=== PATIENT | female | born 1965 | race Caucasian/White ===

== ENCOUNTER 2021-12-07 14:42 | Emergency (ER) | payer OTHER ==
--- OUTSIDE RECORDS SUMMARY | 2021-12-07 14:46 | XMS REPORT | Continuity of Care Document ---
:1965 Author Organization [facility] t Address [address] Dunn [address] [place] [id number] Care Team Providers Name Role Phone BORIS TATE Primary Care Physician Unavailable DUSTY RUEDA Attending Clinician Unavailable HEIDI VU Attending Clinician Unavailable Hyacinth Beckman MD Attending Clinician MARIANN [place] Attending Clinician Unavailable MARIANN [place] Attending Clinician Unavailable Dusty Rueda MD Attending Clinician Doctor Unassigned, [place] Attending Clinician Unavailable Amirah Michael MD Attending Clinician Vtc-Lab Attending Clinician Unavailable AMIRAH MICHAEL Attending Clinician Unavailable Pob, Adc Lab Main Attending Clinician Unavailable 2, Adc Lab Attending Clinician Unavailable Bere Jeffries MA Attending Clinician Unavailable Virginia Eddy Attending Clinician Rosy Tijerina RN Attending Clinician Unavailable VIRGINIA CONCEPCION Attending Clinician Unavailable Angle Whiting RN Attending Clinician Unavailable Only, Ang Db Test Attending Clinician Unavailable Samantha Palma Attending Clinician SAMANTHA VELÁSQUEZ Attending Clinician Unavailable MICHAEL MCGRATH Attending Clinician Unavailable DUSTY RUEDA Admitting Clinician Unavailable Dusty Rueda MD Admitting Clinician Payers Payer Name Policy Type Policy Number Effective Date Expiration Date S ginny [facility] [id number] 2015 HMO 00:00:00 Problems Condition Condition Condition Status Onset Resolution Last Treating Co mments Source Name Details Category Date Date Treatment Clinician Date Pelvic Pelvic Disease Active Univers pressure pressure 09-08 [place] [facility] Urinary Urinary Disease Active Univers frequency frequency 09-08 ity of 00:00: [place] [facility] Constipati Constipati Disease Active U nivers on, on, 09-08 ity of unspecif[place] Medical constipati constipati Br anch on type on type S/P S/P Disease Active Univers hysterecto hysterecto 3-11 it y of my my 00:00: 00 Medical Branch Menopause Menopause Disease Active Uni vers 5-11 ity of 00:00: [place] [facility] Allergies, Adverse Reactions, Alerts Allergy Allergy Status Severity Reaction(s) Onset Inactive Treating Comm ents Source Name Type Date Date Clinician NO KNOWN Drug Active Univers ALLERGIE Class ity of S [facility] Social History Social Habit Start Date Stop Date Quantity Comments Source History of Cigarette Smoker Universi ty of tobacco use [facility] Exposure to 2021-09-04 2021-09-14 Not sure University of SARS-CoV-2 00:00:00 16:02:00 [facility] (event) [place] Tobacco use and 2021-09-08 2021-09-08 Smokeless tobacco Un iversity of exposure 00:00:00 00:00:00 non-user [facility] Alcohol intake 2021-09-08 2021-09-08 Current drinker Unive rsity of 00:00:00 00:00:00 of alcohol [facility] (finding) [place] Tobacco Comment 2021-09-08 2021-09-08 quit over 7 years Un iversity of 00:00:00 00:00:00 ago [facility] Sex Ass[birth year] At [birth year] Universit y of 00:00:00 00:00:00 [facility] Smoking Status Start Date Stop Date Source Ex-smoker 2021-09-08 00:00:00 2021-09-08 00:00:00 [facility] Medications Ordered Filled Start Stop Current Ordering Indication Dosage Frequency Signature Comments Components Source Medication Medication Date Date Medication? Clinician (SIG) Name Name fexofenadin Yes Take by Uni vers e HCl 3-11 mouth. ity of (MUCINEX 13:12: [place] ALLERGY Medical ORAL) Branch fexofenadin Yes Take by Uni vers e HCl 3-11 mouth. ity of (MUCINEX 13:12: [place] ALLERGY Medical ORAL) Branch meloxicam Yes Univers 15 mg 3-10 ity of tablet 00:00: Medical Branch meloxicam Yes Univers 15 mg 3-10 ity of tablet 00:00: Medical Branch Yes Take by Univer s vit 1-19 mouth. ity of calc,iron,f 15:48: [place] olic 10 Medical ( Branch VITAMIN ORAL) Yes Take by Univer s vit 1-19 mouth. ity of calc,iron,f 15:48: [place] olic 10 Medical ( Branch VITAMIN ORAL) albuterol 2020-02 Yes Univers 90 0-11 ity of mcg/actuati 00:00: [place] on inhaler Medical Branch albuterol 2020-02 Yes Univers 90 0-11 ity of mcg/actuati 00:00: [place] on inhaler Medical Branch fluticasone Yes Univer s propionate 5-10 ity of 50 00:00: [place] mcg/actuati Medical on nasal Branch spray fluticasone Yes Univer s propionate 5-10 ity of 50 00:00: [place] mcg/actuati Medical on nasal Branch spray zolpidem 10 Yes 10mg Take 10 mg Univers mg tablet 5-06 by mouth ity of 00:00: at bedtime [place] [address] as needed. Medical Branch zolpidem 10 Yes 10mg Take 10 mg Univers mg tablet 5-06 by mouth ity of 00:00: at bedtime [place] [address] as needed. Medical Branch PARoxetine Yes Univers 20 mg 5-03 ity of tablet 00:00: [place] [facility] PARoxetine Yes Univers 20 mg 5-03 ity of tablet 00:00: [place] 00 Medical Branch amLODIPine Yes TAKE 1 Unive rs 5 mg tablet 4-03 TABLET BY ity of 00:00: MOUTH [place] 00 DAILY IN Medical EVENING Branch amLODIPine Yes TAKE 1 Unive rs 5 mg tablet 4-03 TABLET BY ity of 00:00: MOUTH [place] 00 DAILY IN [facility] EVENING Branch lisinopriL- Yes 1{tbl} Take 1 Un fitz hydrochloro 4-02 tablet by ity of thiazide 00:00: mouth [place] 10-12.5 mg 00 every Medical per tablet morning. Branc h lisinopriL- Yes 1{tbl} Take 1 Un fitz hydrochloro 4-02 tablet by ity of thiazide 00:00: mouth [place] 10-12.5 mg 00 every Medical per tablet morning. [facility] h Immunizations Ordered Filled Immunization Date Status Comments Sourc e Immunization Name Name SARS-COV-2 COVID-19 2019-10-24 Completed Unive rsity of NHAN/J&J VACCINE 00:00:00 [facility] SARS-COV-2 COVID-19 2019-10-24 Completed Unive rsity of HNAN/J&J VACCINE 00:00:00 [facility] Vital Signs Vital Name Observation Time Observation Value Comments Source Systolic blood 2021-09-14 21:08:00 127 mm[Hg] Univer sity of pressure [facility] Diastolic blood 2021-09-14 21:08:00 76 mm[Hg] Unive rsity of pressure [facility] Heart rate 2021-09-14 21:08:00 69 /min [facility] Body temperature 2021-09-14 21:08:00 36.94 Samra [facility] Respiratory rate 2021-09-14 21:08:00 18 /min [facility] Body height 2021-09-14 21:08:00 177.8 cm [facility] Body weight 2021-09-14 21:08:00 97.523 kg [facility] BMI 2021-09-14 21:08:00 30.85 kg/m2 [facility] Procedures Procedure Date / Time Performed Performing Clinician Sourc e POCT URINALYSIS W/O 2021-09-14 21:22:00 Hyacinth Beckman ty of [facility] Encounters Start End Encounter Admission Attending Care Care Encounter Source Date/Time Date/Time Type Type Clinicians Facility Department ID 2021-02-28 Outpatient R DUSTY RUEDA [facility] K 12 PRINCIPAL [id number] [facility] 2021-02-03 Outpatient R DUSTY RUEDA [facility] K 12 PRINCIPAL [id number] Univers [facility]:20[facility] 2021-01-30 Outpatient R DUSTY RUEDA [facility] K 12 PRINCIPAL [id number] Univers 15:56:25 [facility] 2021-10-12 2021-10-12 Telemedici [facility] 1.2.840.114 [id number] Univers 16:00:00 16:30:00 ne Visit Hyacinth BERNABE 350.1.13.10 ity [facility] 4.2.7.2.[place] PROF[place] [id number] W[place] dical NAL [address] [place] [address] 2021-10-12 2021-10-12 [facility] [id number] Univers 16:00:00 16:00:00 HYACINTH [facility] 2021-10-12 2021-10-12 Outpatient [facility] [id number] Univers 16:00:00 16:00:00 [facility] 2021-09-14 2021-09-14 Office [facility] 1.2.840.114 [id number] Univers 16:00:00 17:05:37 Visit Hyacinth BERNABE 350.1.13.10 i ty [facility] 4.2.7.2.[place] [id number] W[place] dical NAL [address] [place] [address] 2021-09-14 2021-09-14 Outpatient R RK [facility] [id number] Univers 16:00:00 17:05:37 HYACINTH [facility] 2021-09-14 2021-09-14 Outpatient [facility] [id number] Univers 16:00:00 16:00:00 HYACINTH [facility] 2021-09-08 2021-09-08 Outpatient R MARIANN [place] [facility] B [id number] Univers 13:30:00 14:20:01 TRIMARIANN CAPUTO ity of [facility] 2021-09-08 2021-09-08 Office Mohsen [facility] BILL 1.2.840.114 [id number] Univers 13:30:00 14:20:01 Visit Mariann BECKMAN 350.1.13.10 it y of WOMEN'S 4.2.7.2.686 [facility] [id number] [facility] 134 Branch 2021-09-08 2021-09-08 Telephone Dusty Rueda [facility] 1.2.840.11 [id number] Univers 00:00:00 00:00:00 RK 350.1.13.10 it y of PEDIATRIC 4.2.7.2.686 [facility] [id number] [facility] 134 Branch 2021-09-08 2021-09-08 Orders Doctor MONCADA 1.2.840.114 [id number] Univers 00:00:00 00:00:00 Only Unassigned, ZAIDA 350.1.13.10 ity of [place] [facility] 4.2.7.2.686 Luciano as [id number] [facility] 009 Branch 2021-06-30 2021-06-30 Orders Doctor CORAL 1.2.840.114 [id number] Univers 00:00:00 00:00:00 Only Unassigned, ZAIDA 350.1.13.10 ity of [place] [facility] 4.2.7.2.686 Luciano as [id number] [facility] 009 Branch 2021-06-18 2021-06-18 Telephone Alec [facility] 1.2.840.114 [id number] Univers 00:00:00 00:00:00 Amirah MULTISPEC 350.1.13.10 ity of IALTY 4.2.7.2.686 [facility] [id number] [facility] AND SORENTO 220 Branch [facility] 2021-06-17 2021-06-17 Platform Material Handling Supervisor Vtc-Lab [facility] 1.2.840.114 [id number] Univers 15:15:00 15:30:00 Visit Amirah Michael MULTISPEC 350.1.13.10 ity of IALTY 4.2.7.2.686 [facility] s WELLMAN [id number] [facility] 357 [place] [facility] 2021-06-17 2021-06-17 Outpatient R ALEC [facility] [id number] Univers 15:15:00 15:15:00 AMIRAH ity of [facility] 2021-06-17 2021-06-17 Outpatient R ALEC [facility] [id number] Univers 14:15:00 15:10:23 AMIRAH ity [facility] 2021-06-17 2021-06-17 Office Alec [facility] 1.2.840.114 [id number] Univers 14:15:00 15:10:23 [facility].1.13.10 ity of IALTY 4.2.7.2.686 [facility] [id number] [facility] 220 [place] [facility] 2021-04-24 2021-04-24 Outpatient R DUSTY RUEDA [facility] [id number] Univers 13:00:00 13:30:03 ity of [facility] 2021-04-24 2021-04-24 Office Dusty Rueda [facility] 1.2.840.114 [id number] Univers 13:00:00 13:30:03 Visit SRINIVASA 350.1.13.10 i ty of [place] 4.2.7.2.[address] [facility] PROFESSIO [id number] W[place] dical [address] 2021-04-14 2021-04-14 Outpatient R DUSTY RUEDA [facility] [id number] Univers 15:00:00 15:00:00 ity of [facility] 2021-03-27 2021-03-27 Telephone Dusty Rueda [facility] 1.2.840.11 [id number] Univers 00:00:00 00:00:00 RK 350.1.13.10 it y of [facility] 4.2.7.2.[address] [facility] [phone] [address] 2021-03-17 2021-03-17 Outpatient R DUSTY RUEDA [facility] [id number] Univers 10:30:00 11:20:27 ity of [facility] 2021-03-17 2021-03-17 Office Dusty Rueda [facility] 1.2.840.114 [id number] Univers 10:30:00 11:20:27 Visit SRINIVASA 350.1.13.10 i ty of [place] 4.2.7.2.686 [place] PROF[place] [id number] W[place] dical [address] 2021-03-09 2021-03-09 Telephone Dusty Rueda [place] 1.2.840.11 [id number] Univers 00:00:00 00:00:00 RK 350.1.13.10 it y of W[place]'S 4.2.7.2.[place] [facility] [id number] [facility] 134 Branch 2021-03-03 2021-03-04 Outpatient R DUSTY RUEDA OKM[facility] DIDI [id number] Univers 07:56:00 15:15:00 ity of [facility] 2021-03-03 2021-03-04 Hospital Dusty Rueda [facility] 1.2.840.114 [id number] Univers 07:56:00 15:15:00 Encounter HEALTH 350.1.13.10 ity of [place] 4.2.7.2.686 [place] KHAN [phone] [facility] [address] [place] ([facility]) 2021-03-03 2021-03-04 Outpatient R DUSTY RUEDA DIDI [id number] Univers 07:56:00 15:15:00 ity of [facility] 2021-03-03 2021-03-03 Surgery Dusty Rueda [facility] 1.2.840.114 [id number] Univers 10:25:00 13:15:00 HEALTH 350.1.13.10 it y of [place] 4.2.7.2.[place] KHAN [id number] [facility] 020 [place] ([facility]) 2021-02-28 2021-02-28 Platform Material Handling Supervisor Sourav, [place] Lab Main [facility] 1.2.8 40.114 [id number] Univers 08:00:00 08:15:00 Visit Dusty Rueda 350.1.13.10 ity of [place] 4.2.7.2.686 [facility] [phone] W[place] dical [facility] 353 Branch [facility] 2021-02-28 2021-02-28 Outpatient R DUSTY RUEDA [facility] [id number] Univers 08:00:00 08:00:00 ity of [facility] 2021-02-20 2021-02-20 Outpatient R DUSTY RUEDA [facility] [id number] Univers 13:00:00 13:00:00 ity of [facility] 2021-02-20 2021-02-20 Outpatient R DUSTY RUEDA [facility] [id number] Univers 13:00:00 13:00:00 ity [facility] 2021-02-18 2021-02-18 Outpatient R ALEC [facility] [id number] Univers 14:45:00 15:42:16 AMIRAH ity [facility] 2021-02-18 2021-02-18 Office [facility] 1.2.840.114 [id number] Univers 14:45:00 15:42:16 [facility] 350.1.13.10 ity of IALTY 4.2.7.2.686 [facility] [id number] [facility] AND S[place]ENT[place] 220 [address] [facility] 2021-02-16 2021-02-16 Telephone Dusty Rueda [facility] 1.2.840.11 [id number] Univers 00:00:00 00:00:00 RK 350.1.13.10 it y of WOMEN'S 4.2.7.2.686 [facility] [id number] [facility] 134 Branch 2021-02-09 2021-02-09 Outpatient R [facility] [id number] Univers 16:30:00 16:30:00 ity of [facility] 2021-02-09 2021-02-09 Outpatient R [facility] [id number] Univers 16:30:00 16:30:00 ity of [facility] 2021-02-09 2021-02-09 Outpatient R [facility] [id number] Univers 16:30:00 16:30:00 ity of [facility] 2021-02-09 2021-02-09 Case Dusty Rueda [facility] 1.2.840.114 [id number] Univers 00:00:00 00:00:00 Management RK 350.1.13.10 ity of [place].7.2.686 [place] [facility] [phone] [address] 2021-02-05 2021-02-05 Platform Material Handling Supervisor 2, Adc Lab [facility] 1.2.840.114 [id number] Univers 10:00:00 10:15:00 Visit Dutsy Rueda 350.1.13.10 ity of [facility] 4.2.7.2.686 [place] [id number] W[place] dical NAL [address] [facility] 2021-02-05 2021-02-05 Outpatient R DUSTY RUEDA [facility] [id number] Univers 10:00:00 10:00:00 ity of [facility] 2021-02-05 2021-02-05 Outpatient R DUSTY RUEDA [facility] [id number] Univers 10:00:00 10:00:00 ity of [facility] 2021-02-03 2021-02-03 Case Dusty Rueda [facility] 1.2.840.114 [id number] Univers 00:00:00 00:00:00 Management RK 350.1.13.10 ity of [place].7.2.[place] [id number] [address] 2021-02-02 2021-02-02 Platform Material Handling Supervisor 2, Adc Lab [facility] 1.2.840.114 [id number] Univers 16:15:00 16:21:36 Visit Dusty Rueda 350.1.13.10 ity of [place] 4.2.7.2.686 [place] [id number] W[place] dical NAL [address] [facility] 2021-02-02 2021-02-02 Outpatient R DUSTY RUEDA [facility] [id number] Univers 16:15:00 16:21:36 ity of [facility] 2021-02-02 2021-02-02 Outpatient R [facility] [id number] Univers 16:15:00 16:15:00 ity of [facility] 2021-02-022021-02-02 Outpatient R DUSTY RUEDA [facility] [id number] Univers 16:15:00 16:15:00 ity of [facility] 2021-01-30 2021-01-30 Outpatient R DUSTY RUEDA [facility] [id number] Univers 15:00:00 17:14:22 ity of [facility] 2021-01-30 2021-01-30 Office Dusty Rueda [facility] 1.2.840.114 [id number] Univers 15:00:00 17:14:22 Visit [place] 350.1.13.10 i ty of [place] 4.2.7.2.686 [place] PROF[place] [id number] W[place] dical [address] 2021-01-30 2021-01-30 Outpatient R DUSTY RUEDA [facility] [id number] Univers 15:00:00 15:00:00 ity [facility] 2021-01-30 2021-01-30 Telephone Dusty Rueda [facility] 1.2.840.11 [id number] Univers 00:00:00 00:00:00 RK 350.1.13.10 it y of [place] 4.2.7.2.[place] [id number] [address] 2021-01-29 2021-01-29 Office Dusty Rueda [facility] 1.2.840.114 [id number] Univers 13:00:00 13:34:49 Visit RK 350.1.13.10 it y of [place] 4.2.7.2.[place] [id number] [address] 2021-01-29 2021-01-29 Outpatient R DUSTY RUEDA [facility] [id number] Univers 13:00:00 13:34:49 ity of [facility] 2021-01-29 2021-01-29 Outpatient R DUSTY RUEDA [facility] [id number] Univers 13:00:00 13:34:49 ity [facility] 2021-01-29 2021-01-29 Outpatient R DUSTY RUEDA [facility] [id number] Univers 13:00:00 13:00:00 ity [facility] 2021-01-29 2021-01-29 Outpatient R DUSTY RUEDA [facility] [id number] Univers 13:00:00 13:00:00 ity of [facility] 2021-01-23 2021-01-23 Outpatient R DUSTY RUEDA [facility] [id number] Univers 15:45:00 16:34:50 ity of [facility] 2021-01-23 2021-01-23 Outpatient R DUSTY RUEDA [facility] [id number] Univers 15:45:00 16:34:50 ity of [facility] 2021-01-23 2021-01-23 Office Dusty Rueda [facility] 1.2.840.114 [id number] Univers 15:33:26 16:34:50 Visit SRINIVASA 350.1.13.10 i ty of [place] 4.2.7.2.686 [place] [facility] [phone] [place] dical [address] 2021-01-23 2021-01-23 Orders Doctor CORAL 1.2.840.114 [id number] Univers 00:00:00 00:00:00 Only Unassigned, ZAIDA 350.1.13.10 ity of [place] [facility] 4.2.7.2.686 Luciano as [id number] [facility] 009 [place] 2021-01-06 2021-01-06 Telephone Dusty Rueda [facility] 1.2.840.11 [id number] Univers 00:00:00 00:00:00 RK 350.1.13.10 it [place].2.[place] [id number] [facility] 134 [place] 2021-01-05 2021-01-05 Outpatient R DUSTY RUEDA [facility] [id number] Univers 14:47:52 23:59:00 ity of [facility] 2021-01-05 2021-01-05 Hospital Dusty Rueda [facility] 1.2.840.114 [id number] Univers 14:47:52 23:59:00 Encounter SRINIVASA 350.1.13.10 ity of [place] 4.2.7.2.686 [place] [id number] [facility] 806 [place] 2021-01-05 2021-01-05 Orders Doctor CORAL 1.2.840.114 [id number] Univers 00:00:00 00:00:00 Only Unassigned, ZAIDA 350.1.13.10 ity of [place] [facility] 4.2.7.2.686 Luciano as [id number] [facility] 009 Branch 2020-12-25 2020-12-25 Outpatient R DUSTY RUEDA [facility] [id number] Univers 15:00:00 15:59:27 ity of [facility] 2020-12-25 2020-12-25 Office Dusty Rueda [facility] KHAN 1.2.840.114 [id number] Univers 14:47:44 15:59:27 Visit RK 350.1.13.10 it y of [place] 4.2.7.2.[place] [id number] [facility] 134 [place] 2020-12-25 2020-12-25 Outpatient R DUSTY RUEDA [facility] [id number] Univers 15:00:00 15:00:00 ity of [facility] 2020-12-01 2020-12-01 Office Dusty Rueda [facility] Khan 1.2.840.114 [id number] Univers 15:30:00 16:00:00 Visit Rk 350.1.13.10 it y of [place]'s 4.2.7.2.686 [place] [id number] [facility] 134 [place] 2020-12-01 2020-12-01 Outpatient R DUSTY RUEDA [facility] [id number] Univers 15:30:00 15:30:00 ity of [facility] 2020-12-01 2020-12-01 Outpatient R DUSTY RUEDA [facility] [id number] Univers 15:30:00 15:30:00 ity [facility] 2020-11-25 2020-11-25 Pre Visit Vineet Jeffries [id number] Univers 00:00:00 00:00:00 Outreach Bere Montemayory 350.1.13.10 i ty of [place] 4.2.7.2.686 [place] [id number] [facility] [address] [place] [address] 2020-11-04 2020-11-04 [facility] [id number] Univers 00:00:00 00:00:00 [facility] 350.1.13.10 it y of [place] 4.2.7.2.686 Luciano as Ihsan?Blea [phone] [address] Office [facility] 2020-11-03 2020-11-03 Letter LillianaCROAL billingsley 1.2.840.114 [id number] Univers 00:00:00 00:00:00 (Out) Rosy CERDA 350.1.13.10 it y of [facility] 4.2.7.2.686 Luciano as [phone] [address] 2020-11-02 2020-11-02 [facility] 1.2.840.114 [id number] Univers 19:08:43 19:28:43 Care [employer] 350.1.13.10 it y of [place] 4.2.7.2.686 [place] as Hisan?Blea [id number] [address] 2020-11-02 2020-11-02 Outpatient R CARLENE [facility] [id number] Univers 19:20:00 19:20:00 [place] yuri [facility] 2020-10-11 2020-10-11 Telephone CORAL [place] [id number] Univers 00:00:00 00:00:00 Angle CERDA 350.1.13.10 i ty of HOSPITAL 4.2.7.2.686 [place] as [id number] [address] 2020-10-10 2020-10-10 Laboratory Only, Ang Db Test [facility] 1.2.8 40.114 [id number] Univers 09:28:53 09:38:53 Only Samantha Velásquez [employer] 350.1.13.10 ity of [place] 4.2.7.2.686 Luciano as Ihsan?Blea [id number] [address] 2020-10-10 2020-10-10 Outpatient R CHRISTEN [facility] [id number] Univers 09:35:00 09:35:00 SAMANTHA [facility] 2020-10-08 2020-10-08 Letter CORAL Tijerina 1.2.840.114 [id number] Univers 00:00:00 00:00:00 (Out) Rosy CERDA 350.1.13.10 [facility] 4.2.7.2.686 [place] as [phone] [address] 2020-10-06 2020-10-06 Outpatient Teresa MCGRATH [facility] [id number] Univers 20:30:00 20:30:00 MICHAEL [facility] 2020-06-24 2020-06-24 Outpatient DUSTY MALIK [facility] [id number] Univers 10:00:00 10:00:00 [facility] Results Test Description Test Time Test Comments Results Result Comments Source POCT URINALYSIS W/O SPECIFIC GRAVITY 2021-09-14 21:23:00 Test Item Value Reference Range Interpretation Comme nts POCT PH U (test code = 3254) 7 mg/dl 5-8 POCT U LEUK EST (test code = 3263) negative Negative - Negative POCT U NIT (test code = 3262) negative Negative - Negative POCT U PROT (test code = 3259) trace Negative - Negative POCT U GLU (test code = 3256) negative Negative - Negative POCT U KETONE (test code = 3258) negative Negative - Negative POCT U BLD (test code = 3257) trace Negative - Negative [facility]
[2021-12-07 15:53] LABS: Urine Blood Negative (Negative); Urine Glucose Negative (Negative); Urine Protein Negative (Negative); Urine Specific Gravity 1.025 (1.005-1.030); Urine pH 6.5 (5.0-7.0)
[2021-12-07] MEDS ORDERED: KETOROLAC 30 MG/ML INJ ONE (16:11)
[2021-12-07] MEDS ORDERED: NA CHLORIDE 0.9% 500 ML ONE (16:11)
[2021-12-07 16:20] LABS: Absolute Lymphocytes (CBC) 2.8 K/uL (0.7-4.9); Hematocrit 42.6 % (36.0-45.0); Lymphocytes % 29.8 % (15.3-44.8); MCV 91.2 fL (80-100); MPV 8.3 fL (7.6-11.3); RBC Red Blood Cell Count 4.67 M/uL (3.86-4.86)
[2021-12-07 16:42] LABS: Urine Mucus Slight /HPF (None Seen)
[2021-12-07 16:48] LABS: Albumin 4.1 g/dL (3.4-5.0); Bilirubin Total 0.4 mg/dL (0.2-1.0)
--- NOTE | 2021-12-07 17:55 | RAD REPORT ---
EXAM DESCRIPTION: CT - Abdomen Pelvis W Contrast - 12/07/2021 5:35 pm CLINICAL HISTORY: Abdominal pain COMPARISON: none. TECHNIQUE: Computed axial tomography of the abdomen pelvis was obtained. 100 cc Isovue-300 was admin istered intravenously. Oral contrast was not requested which limits evaluation of bowel and appendix All CT scans are performed using dose optimization technique as appropriate and may include automated exposure control or mA/KV adjustment according to patient size. FINDINGS: Fatty liver The spleen, pancreas, adrenal and kidneys appear unremarkable. There is no evidence of diverticulitis. 2 centimeter fatty structure abuts lower descending colon. Mild stranding within the adjacent fat. Th is is compatible with epiploic appendagitis. Hysterectomy. No adnexal mass IMPRESSION: Epiploic appendagitis
--- NOTE | 2021-12-07 18:26 | ER ---
Nurse's Notes [facility] Name: Abe Aly Age: 56 yrs Sex: Female : 1965 Arrival Date: 12/07/2021 Time: 14:44 Bed 17 Private MD: Natalie Montes C Diagnosis: Epiploic Appendagitis Presentation: 12/07 15:37 Chief complaint: Patient states: LLQ pain since Tuesday with one episode of diarrhea vg1 on Tuesday. Denies N/V or burning upon urination. Coronavirus screen: Vaccine status: Patient reports receiving the 2nd dose of the covid vaccine. Client denies travel out of the [place] in the last 14 days. Ebola Screen: Patient negative for fever greater than or equal to 101.5 degrees Fahrenheit, and additional compatible Ebola Virus Disease symptoms Patient denies exposure to infectious person. Initial Sepsis Screen: Does the patient meet any 2 criteria? No. Patient's initial sepsis screen is negative. Does the patient have a suspected source of infection? No. Patient's initial sepsis screen is negative. Risk Assessment: Do you want to hurt yourself or someone else? Patient reports no desire to harm self or others. Onset of symptoms was December 05, 2021. 15:37 Method Of Arrival: Ambulatory vg1 15:37 Acuity: LIZ 3 vg1 Triage Assessment: 15:38 General: Appears uncomfortable, Behavior is calm, cooperative. Pain: Complains of pain vg1 in left lower quadrant Pain currently is 6 out of 10 on a pain scale. Pain began 2-3 days ago. GI: Reports diarrhea. Historical: - Allergies: 15:38 No Known Allergies; vg1 - Home Meds: 15:38 Lisinopril Oral [Active]; Paxil Oral [Active]; vg1 - PSHx: 15:38 Hysterectomy; vg1 - Immunization history:: Client reports receiving the 2nd dose of the Covid vaccine. - Social history:: Smoking status: Patient/guardian denies using tobacco, the patient reports quitting approximately 8 years ago. Screenin:07 Abuse screen: Denies threats or abuse. Nutritional screening: No deficits noted. ll1 Tuberculosis screening: No symptoms or risk factors identified. Fall Risk IV access (20 points). Total Jaffe Fall Scale indicates No Risk (0-24 pts). Assessment: 16:07 Reassessment: No changes from previously documented assessment. Patient and/or family ll1 updated on plan of care and expected duration. Pain level reassessed. 16:45 Reassessment: No changes from previously documented assessment. Patient and/or family ll1 updated on plan of care and expected duration. Pain level reassessed. Patient is alert, oriented x 3, equal unlabored respirations, skin warm/dry/pink. 17:45 Reassessment: No changes from previously documented assessment. Patient and/or family ll1 updated on plan of care and expected duration. Pain level reassessed. 18:53 Reassessment: No changes from previously documented assessment. Patient and/or family ll1 updated on plan of care and expected duration. Pain level reassessed. Vital Signs: 15:37 BP 144 / 96; Pulse 77; Resp 16; Temp 98.2; Pulse Ox 98% ; Weight 94.35 kg; Height 5 ft. vg1 10 in. (177.80 cm); Pain 6/10; 17:54 BP 159 / 82; Pulse 58; Resp 15; Pulse Ox 96% on R/A; ll1 15:37 Body Mass Index 29.84 (94.35 kg, 177.80 cm) vg1 ED Course: 14:44 Patient arrived in ED. am2 14:44 Natalie Montes MD is Private Physician. am2 15:11 Bin Sibley PA is PHCP. cp 15:11 Dajuan Godoy MD is Attending Physician. cp 15:38 Triage completed. vg1 15:38 Arm band placed on. vg1 15:57 Sonido Kapadia, MARCELO is Primary Nurse. ll1 16:07 Patient has correct armband on for positive identification. Bed in low position. Call ll1 light in reach. Side rails up X2. Client placed on continuous cardiac and pulse oximetry monitoring. NIBP monitoring applied. 16:07 Inserted saline lock: 22 gauge in right antecubital area, using aseptic technique. ll1 Blood collected. 17:37 CT Abd/Pelvis - IV Contrast Only In Process Unspecified. EDMS 18:52 No provider procedures requiring assistance completed. IV discontinued, intact, ll1 bleeding controlled, No redness/swelling at site. Pressure dressing applied. Administered Medications: 16:32 Drug: Ketorolac 15 mg Route: IVP; Site: right antecubital; ll1 18:51 Follow up: Response: No adverse reaction 1 16:32 Drug: NS 0.9% 500 ml Route: IV; Rate: bolus; Site: right antecubital; 1 18:52 Follow up: Response: No adverse reaction; IV Status: Completed infusion; IV Intake: ll1 500ml 18:51 Drug: Hydrocodone-Acetaminophen (7.5 mg-325 mg) 1 tabs {Note: rass 0, pain 2/10.} 1 Route: PO; 18:52 Follow up: Response: No adverse reaction 1 Medication: 16:08 VIS not applicable for this client. ll1 Intake: 18:52 IV: 500ml; Total: 500ml. 1 Outcome: 18:25 Discharge ordered by MD. kianna 18:52 Discharged to home ambulatory. 1 18:52 Condition: stable 18:52 Discharge instructions given to patient, Instructed on discharge instructions, follow up and referral plans. medication usage, Demonstrated understanding of instructions, follow-up care, medications, Prescriptions given X 2. 18:54 Patient left the ED. 1 Signatures: Dispatcher [employer] EDMS Bin Sibley PA PA cp Moreno, Amanda am2 Garcia, Victoria, RN RN vg1 Sonido Kapadia RN RN ll1
--- NOTE | 2021-12-07 18:26 | EDPHYS ---
Physician Documentation [facility] Name: Abe Aly Age: 56 yrs Sex: Female : 1965 Arrival Date: 12/07/2021 Time: 14:44 Bed 17 Private MD: Natalie Montes C ED Physician Dajuan Godoy HPI: 12/07 15:45 This 56 yrs old Female presents to ER via Ambulatory with complaints of Flank Pain - cp left side. 15:45 The patient complains of pain in the left lower lateral abdomen. The pain does not cp radiate. 15:45 Onset: The symptoms/episode began/occurred 2 day(s) ago. cp 15:45 Associated signs and symptoms: Pertinent positives: 1 episode of diarrhea 2 days ago, cp Pertinent negatives: dysuria, fever, urinary frequency, hematuria, pain radiating to the lower extremities, vomiting. Severity of pain: in the emergency department the pain is unchanged despite home interventions. Historical: - Allergies: 15:38 No Known Allergies; vg1 - Home Meds: 15:38 Lisinopril Oral [Active]; Paxil Oral [Active]; vg1 - PSHx: 15:38 Hysterectomy; vg1 - Immunization history:: Client reports receiving the 2nd dose of the Covid vaccine. - Social history:: Smoking status: Patient/guardian denies using tobacco, the patient reports quitting approximately 8 years ago. ROS: 15:50 Constitutional: Negative for body aches, chills, fever, poor PO intake. cp 15:50 Eyes: Negative for injury, pain, redness, and discharge. cp 15:50 ENT: Negative for drainage from ear(s), ear pain, sore throat, difficulty swallowing, difficulty handling secretions. 15:50 Cardiovascular: Negative for chest pain, edema, palpitations. 15:50 Respiratory: Negative for cough, shortness of breath, wheezing. 15:50 Abdomen/GI: Positive for abdominal pain, of the left lower lateral abdomen, Negative for vomiting, diarrhea, constipation, anorexia, black/tarry stool, rectal bleeding. 15:50 Back: Negative for radiated pain. 15:50 : Negative for urinary symptoms. 15:50 Neuro: Negative for altered mental status, dizziness, headache, weakness. 15:50 All other systems are negative. Exam: 15:55 Constitutional: The patient appears in no acute distress, alert, awake, non-toxic, well cp developed, well nourished. 15:55 Head/Face: Normocephalic, atraumatic. cp 15:55 Eyes: Periorbital structures: appear normal, Conjunctiva: normal, no exudate, no injection, Sclera: no appreciated abnormality, Lids and lashes: appear normal, bilaterally. 15:55 ENT: External ear(s): are unremarkable, Nose: is normal, Mouth: Lips: moist, Oral mucosa: pink and intact, moist, Posterior pharynx: Airway: no evidence of obstruction, patent. 15:55 Chest/axilla: Inspection: normal. 15:55 Cardiovascular: Rate: normal, Rhythm: regular. 15:55 Respiratory: the patient does not display signs of respiratory distress, Respirations: normal, no use of accessory muscles, no retractions, labored breathing, is not present, Breath sounds: are clear throughout, no decreased breath sounds, no stridor, no wheezing. 15:55 Abdomen/GI: Inspection: abdomen appears normal, Bowel sounds: active, all quadrants, Palpation: soft, in all quadrants, mild abdominal tenderness, in the left lower lateral abdomen, rebound tenderness, is not appreciated, involuntary guarding, is not appreciated. 15:55 Back: pain, is absent, ROM is normal. 15:55 Skin: cellulitis, is not appreciated, no rash present. 15:55 Neuro: Orientation: to person, place \T\ time. Mentation: is normal, Motor: moves all fours, strength is normal. Vital Signs: 15:37 BP 144 / 96; Pulse 77; Resp 16; Temp 98.2; Pulse Ox 98% ; Weight 94.35 kg; Height 5 ft. vg1 10 in. (177.80 cm); Pain 6/10; 17:54 BP 159 / 82; Pulse 58; Resp 15; Pulse Ox 96% on R/A; ll1 15:37 Body Mass Index 29.84 (94.35 kg, 177.80 cm) vg1 MDM: 15:41 Patient medically screened. cp 18:25 Data reviewed: vital signs, nurses notes, lab test result(s), radiologic studies, CT cp scan. 18:25 Counseling: I had a detailed discussion with the patient and/or guardian regarding: the cp historical points, exam findings, and any diagnostic results supporting the discharge/admit diagnosis, lab results, radiology results, to return to the emergency department if symptoms worsen or persist or if there are any questions or concerns that arise at home. Response to treatment: the patient's symptoms have markedly improved after treatment, and as a result, I will discharge patient. Special discussion: Based on the patient's Hx, exam, and Dx evaluation, there is no indication for emergent surgery or inpatient Tx. It is understood by the patient/guardian that if the Sx's persist or worsen they need to return immediately for re-evaluation. 12/07 15:41 Order name: CBC with Diff; Complete Time: 17:09 cp 12/07 17:09 Interpretation: Reviewed. cp 12/07 15:41 Order name: CMP; Complete Time: 17:09 cp 12/07 17:09 Interpretation: Normal except: GLOB 3.9. cp 12/07 15:41 Order name: Lipase; Complete Time: 17:09 cp 12/07 15:41 Order name: Urine Microscopic Only; Complete Time: 17:09 cp 12/07 15:53 Order name: Urine Dipstick-Ancillary; Complete Time: 17:09 EDMS 12/07 17:09 Interpretation: Reviewed. cp 12/07 15:58 Order name: CT Abd/Pelvis - IV Contrast Only; Complete Time: 17:59 cp 12/07 15:41 Order name: IV Saline Lock; Complete Time: 15:44 cp 12/07 15:41 Order name: Labs collected and sent; Complete Time: 15:44 cp 12/07 15:41 Order name: Urine Dipstick-Ancillary (obtain specimen); Complete Time: 15:44 cp Administered Medications: 16:32 Drug: Ketorolac 15 mg Route: IVP; Site: right antecubital; ll1 18:51 Follow up: Response: No adverse reaction ll1 16:32 Drug: NS 0.9% 500 ml Route: IV; Rate: bolus; Site: right antecubital; ll1 18:52 Follow up: Response: No adverse reaction; IV Status: Completed infusion; IV Intake: ll1 500ml 18:51 Drug: Hydrocodone-Acetaminophen (7.5 mg-325 mg) 1 tabs {Note: rass 0, pain 2/10.} ll1 Route: PO; 18:52 Follow up: Response: No adverse reaction ll1 Disposition Summary: 12/07/21 18:25 Discharge Ordered Location: Home cp Problem: new cp Symptoms: have improved cp Condition: Stable cp Diagnosis - Epiploic Appendagitis cp Followup: cp - With: Private Physician - When: 2 - 3 days - Reason: Recheck today's complaints Discharge Instructions: - Discharge Summary Sheet cp - Epiploic Appendagitis cp Forms: - Medication Reconciliation Form cp - Thank You Letter cp - Antibiotic Education cp - Prescription Opioid Use cp - Work release form ll1 Prescriptions: - Diclofenac Sodium 75 mg Oral Tablet Sustained Release - take 1 tablet by ORAL route 2 times per day; 30 tablet; Refills: 0, Product cp Selection Permitted - Tramadol 50 mg Oral Tablet - take 1 tablet by ORAL route every 8 hours as needed; 12 tablet; Refills: 0, cp Product Selection Permitted Addendum: 12/10/2021 07:03 Co-signature as Attending Physician, Dajuan Godoy MD. r n Signatures: Dispatcher [employer] EDDajuan Jasso MD MD rn Page, Corey, PA PA cp Garcia, Victoria RN RN vg1 Sonido Kapadia RN RN ll1
[2021-12-07] MEDS ORDERED: HYDROCODONE/APAP 7.5/325 MG TAB ONE (18:44)
[2021-12-07 20:39] VITALS: TEMP 98.2
[2021-12-07 20:41] VITALS: BP 159/82; O2SAT 96
== END 2021-12-07 18:54 | disposition home or self-care (01) ==
LOC: ER 14:42
DX: K63.89 Other specified diseases of intestine (principal)
CPT/HCPCS: 96361; 85025; 36415; 83690; 80053; 74177; 96374; 99284; Q9967; J7040; 81003; 81015